=== PATIENT | female | born 1965 | race Hispanic/Latino ===

== ENCOUNTER 2017-02-19 23:13 | Emergency (ER) | payer SELFPAY ==
[~2017-02-19] VITALS: Ht 134.6 cm; Wt 56.8 kg
[2017-02-19 23:19] VITALS: BP 195/73; PULSE 88; RESP 16; O2SAT 97
[2017-02-19] MEDS ORDERED: diphenhydrAMINE 25 mg Capsule PO ONE (23:26)
--- NOTE | 2017-02-19 23:36 | ED.REPORT ---
HPI-Rash / Abscess Date of Service Feb 19, 2017 ED Provider: Lexa Daniels DO Pt is an otherwise 51 year old female who presents to the ED complaining of a diffuse rash onset prior to arrival after taking Advil. The pt reports that she is not allergic to anything. She had taken the Advil for a headache when the rash appeared. Pt c/o associated itching. She denies SOB and any other symptoms. Pt's daughter was present to interpret. Nursing Notes Stated Complaint: BODY RASH,ITCHING Chief Complaint: Skin Rash/Abscess Nursing Notes Reviewed: Yes Allergies: Coded Allergies: No Known Allergies (Unverified , 02/04/16) General Time Seen by MD: 23:35 Chief Complaint Rash Hx Obtained From: Patient Arrived By: Walk-in Onset Occurred: Just prior to arrival Symptom Duration: Since onset Quality: Itching Severity: Current: Moderate Severity: Maximum: Moderate Recent Healthcare: No recent doctor visit, No recent hospitalization Similar Sx Previous: No Past Medical History Past Medical History None reported Denies: Diabetes mellitus, Hypertension Past Surgical History None reported Smoking History Unknown if Ever Smoker Social History Originally from [place] Other Social History: Good social support Ambulatory Status Independent Review of Systems Respiratory: Denies: Shortness of breath Allergy / Immune: Reports: Hives, Itching Complete sys rev & neg: except as marked. Neurologic: Reports: Headache Physical Exam Initial Vital Signs Vital Signs (First) Date Time Temp Pulse Resp B/P Pulse Ox O2 Delivery O2 Flow Rate FiO2 02/19/17 23:19 36.4 88 16 195/73 97 Room Air Initial VS: Reviewed Head / Eyes: Atraumatic, Normocephalic Neck: Supple, Full range of motion Respiratory: Breath sounds normal, Clear to auscultation, No respiratory distress Cardiovascular: Regular rate & rhythm, Heart sounds normal, Intact distal pulses Extremities: Vascular intact, Neuro intact Neurologic: Alert, Oriented, Nonfocal Psychiatric: Mood/affect normal, Behavior normal General/Constitutional: Awake, Alert Skin: Warm, Dry Diffuse urticaria ENT: Atraumatic, Airway patent Re-Eval/Medical Decision Source of Hx: Old records Re-Evaluation/Progress : Time of Eval: 23:41 Patient Status: Condition improved (much less urticaria. No signs of angioedema.) Re-Evaluation/Progress Note: Informed pt that she should not take ibuprofen, motrin, and advil as she is allergic. Informed pt of plan to treat her rash with a topical cream and pending discharge. Pt understands and agrees with plan for discharge. F/U instructions and RTER warnings given. Pt understands and agrees with plan. All questions addressed. Counseled Regarding: Diagnosis, Need for follow-up, When/why to return to ED Discharge & Departure Impression: Primary Impression: Allergic reaction Encounter type: initial encounter Qualified Code: T78.40XA - Allergy, unspecified, initial encounter Additional Impression: Diffuse urticaria Disposition: Home Discharge Condition All VS Reviewed: Yes Condition: Stable Patient Instructions: General Allergic Reaction (ED), Urticaria (ED) Additional Instructions: Finish the Medrol dose pack. Avoid taking anti-inflammatory medication including Motrin and Ibuprofen in the future. Do not drive tonight as you have received sedating medications. Call your primary care provider or the referral for a follow up appointment next week. You may need a referral to an skin care therapist for allergy testing. Return to the emergency department for any new or concerning symptoms. Referrals: Evy Chirinos MD (PCP) Scribe Attestation Portions of this note were transcribed by Veda Hernandez. I, Dr. Daniels personally performed the history, physical exam and medical decision-making; I reviewed and confirmed the accuracy of the information in the transcribed note. Signed by : Mel Mcguire, 02/19/17. copies to: Evy Chirinos MD, Todd P DO Feb 19, 2017 23:36 Veda Hoskins Feb 20, 2017 00:10
[2017-02-19] MEDS ORDERED: Dexamethasone 20 mg/2 mL Oral Solution PO ONE (23:40)
[2017-02-19] MEDS ORDERED: LORazepam 0.5 mg Tablet PO ONE (23:45)
[2017-02-20 00:33] VITALS: BP 124/68; PULSE 76; RESP 20; O2SAT 100
== END 2017-02-20 00:34 | disposition home or self-care (01) ==
LOC: SED 23:13
DX: L50.0 Allergic urticaria (principal); L29.9 Pruritus, unspecified